=== PATIENT | female | born 1980 | race Caucasian/White ===

== ENCOUNTER → 2016-09-21 | Day surgery (SDC) | payer BC ==
--- NOTE | 2016-09-20 11:02 | GHP ---
[f rep st] PREOP HISTORY AND PHYSICAL DATE OF ADMISSION: 09/21/2016 DATE OF SURGERY: Scheduled for September 21, 2016. CHIEF COMPLAINT: Vaginal bleeding in . HISTORY OF PRESENT ILLNESS: The patient is a 36-year-old, 2, para 0, abortus 1 female at 6 weeks and 4 days' estimated gestational age by IVF dating who presented for vaginal bleeding in . On September 16, 2016, she had an ultrasound at [facility] that had shown a small gestational sac with a viable with cardiac activity seen. She had continued to have vaginal bleeding and requested a repeat ultrasound. She was evaluated in clinic on September 18, 2016 and was found to have no evidence of a viable on transvaginal ultrasound. In addition, there was a large amount of heterogeneous and echogenic material within the uterus consistent with a large subchorionic hemorrhage and a collapsed sac. There was no identifiable gestational sac and no pole present. The heterogeneous material within the uterus measured approximately 3.5 cm. She proceeded to have a followup ultrasound the next day at [facility] which confirmed these findings. She continues to have bleeding and desires to proceed with a suction dilation and curettage for definitive management. She currently is taking antibiotics for prevention of infection. She has no heavy bleeding over a pad an hour and on exam her cervix was closed. PAST MEDICAL HISTORY: Infertility, PCOS. PAST SURGICAL HISTORY: [place] teeth and suction D and C in January 2016. OBSTETRICAL HISTORY: Spontaneous in March 2016 requiring a D and C. GYNECOLOGIC HISTORY: Not contributory. FAMILY HISTORY: Not contributory. OBJECTIVE: VITAL SIGNS: Stable. GENERAL: No acute distress. Well-developed , well-nourished female. CHEST: Clear to auscultation bilaterally. CARDIOVASCULAR: Regular rate and rhythm. ABDOMEN: Soft and nontender. PELVIC : Speculum exam revealed a small amount of brown discharge in the vaginal vault and a closed cervix. No uterine or adnexal tenderness or masses. ULTRASOUND FINDINGS: Uterus contained heterogeneous material measuring 3 x 3.5 cm. No identifiable gestational sac present. Normal ovaries bilaterally with no free fluid or adnexal masses. ASSESSMENT: Patient is a 36-year-old, 2, para 0, abortus 1, female at 6 weeks and 4 days' estimated gestational age by IVF dating with a spontaneous miscarriage and active threatened . PLAN: 1. Admit for suction dilation and curettage. 2. Antibiotics: Doxycycline 100 mg IV on-call to the operating room. 3. Counseling: The patient was counseled regarding the findings consistent with a failed intrauterine . These findings were confirmed at her infertility clinic two days prior to planned admission. She was counseled regarding the options of expectant management, medical management with Cytotec or surgical management with a dilation and curettage. She desires strongly to proceed with dilation and curettage for completion of this unfortunate miscarriage. She was counseled regarding all the risks, to include risks of infection, bleeding, uterine perforation, damage to surrounding structures and organs and retained tissue. She agrees to proceed. /[id number]/MODL MTDD
[~2016-09-21] MED LIST: ACETAMINOPHEN 325 MG TAB PO PRN; DEXAMETHASONE 4 MG/ML VIAL ONE; DOXYCYCLINE INJ 100 MG in NS 250 ML IV ONE; HYDROCODONE/APAP 5/325 TAB PO PRN; KETOROLAC 30 MG/1 ML SDV ONE; LIDOCAINE 2% 5 ML SDV ONE; LR 1,000 ML IV ONE; LR 1,000 ML IV SCH; MIDAZOLAM 2 MG/2 ML VIAL ONE; ONDANSETRON 4 MG/2 ML VIAL IVP PRN; ONDANSETRON 4 MG/2 ML VIAL ONE; PROMETHAZINE HCL 25 MG/ML INJ IVP PRN; PROPOFOL/EMULSION 500 MG/50 ML BOTTLE IV ONE; fentaNYL 100 MCG/2 ML INJ ONE
--- NOTE | 2016-09-21 08:27 | POSTOPPROG ---
Post Op Note Date of Operation: 09/21/16 Surgeon: Nicole Parekh Tempering Kiln Tender: none Anesthesiologist: Tyree Parker MD Anesthesia: GET(General Endotracheal) (w/ mask) Pre-op Diagnosis: Missed with large subchorionic hemorrhage Post-op Diagnosis: guilherme Indication: Miscarriage, desires surgical management Procedure: Suction D&C Findings: tissue, blood and clot c/w POC Inf/Abcess present in the surg proc area at time of surgery?: No Depth: Organ Space EBL: 50-100 Total fluids administered: 1000cc Complications: none Specimen(s): products of conception
--- NOTE | 2016-09-21 10:45 | GOP ---
[f rep st] OPERATIVE REPORT DATE OF OPERATION: 09/21/2016 SURGEON: Nicole Parekh MD HEAD GREASE MAKER: None. ANESTHESIA: General. ANESTHESIOLOGIST: Edgard Parker MD. PREOPERATIVE DIAGNOSIS: Missed with large subchorionic hemorrhage. POSTOPERATIVE DIAGNOSIS: Missed with large subchorionic hemorrhage. PROCEDURE PERFORMED: Suction dilation and curettage. FINDINGS: 1. Exam under anesthesia revealed an anteverted uterus and no adnexal masses. 2. Tissue removed from the uterus appeared grossly consistent with products of conception. SPECIMENS: Uterine contents consistent with products of conception. ESTIMATED BLOOD LOSS: 75 cc. INDICATIONS: Patient is a 36-year-old 2, para 0, abortus 1 female who was diagnosed with a missed and large subchorionic hemorrhage two days prior to admission with an ultrasound showing the prior pole with cardiac activity was no longer seen, the gestational sac was collapsed, and there was a large 3 x 4 cm subchorionic hemorrhage with blood and clot filling the uterus. The patient was counseled regarding all treatment options, and desired to proceed with surgery. DESCRIPTION OF PROCEDURE: The patient was taken to the operating room where general anesthesia was found to be adequate. The patient was prepared and draped in the normal sterile fashion in the dorsal lithotomy position. Doxycycline 100 mg IV was administered on-call to the operating room. A weighted speculum was placed in the patient's vagina and a Simental retractor used to visualize the cervix clearly. A single-toothed tenaculum was placed on the anterior lip of the cervix and the cervix was gently dilated up to 7-1/2 mm using Hegar dilators with no immediate complications. A 7 mm rigid curved suction curette was attached to tubing and the pressure was tested and noted to be adequate at 60 mmHg. The suction curette was placed into the uterine cavity and was rotated to clear the uterus of all clots, tissue, and debris. A sharp curettage was then performed with a gritty texture noted circumferentially. A repeat suction curettage was performed with no additional tissue bladder clot noted. The tenaculum was then removed from the cervix and hemostasis was obtained with silver nitrate. There was no active bleeding noted. All sponge, lap, and needle counts correct x2. Patient was transferred to the PACU in stable and good condition. COMPLICATIONS: None. DRAINS: None. INTRAVENOUS FLUIDS: 1000 cc. URINE OUTPUT: None. /[id number]/MODL MTDD
== END | disposition home or self-care (01) ==
LOC: FOBOP 06:02 → EEVIPCON 07:30
PROVIDERS: ATTEND Obstetrics & Gynecology
PROC: 10D17ZZ Extraction of Products of Conception, Retained, Via Natural or Artificial Opening (ICD-10-PCS; principal; 2016-09-21)
DX: O02.1 Missed abortion (principal)
CPT/HCPCS: J1100; J1885; J2250; J2405; J2704; J3010